=== PATIENT | female | born 1990 | race Caucasian/White ===

== ENCOUNTER 2018-07-30 10:09 | Outpatient (CLI) | payer OTHER, MEDICAID ==
[2018-07-30] MEDS ORDERED: LEVO200T5 PO (11:13)
== END 2018-07-30 23:59 | disposition home or self-care (01) ==
LOC: STAR 10:09
PROVIDERS: ATTEND Obstetrics & Gynecology
DX: Z02.9 Encounter for administrative examinations, unspecified (principal)

== ENCOUNTER 2018-08-08 13:55 | Day surgery (SDC) | payer OTHER, MEDICAID ==
[~2018-08-08] VITALS: Ht 167.6 cm; Wt 165.9 kg
[~2018-08-08 13:55] MED LIST: LEVO200T5 PO
[2018-08-08] MEDS ORDERED: LACTATED RINGERS 1,000 ML IV SCH (14:20)
[2018-08-08 14:26] VITALS: BP 142/89
[2018-08-08] MEDS ORDERED: BUPIVACAINE/PF 0.25% ONE (15:15)
[2018-08-08] MEDS ORDERED: EPINEPHRINE 1 MG/ML, 1ML ONE (15:15)
[2018-08-08] MEDS ORDERED: FENTANYL PF 250 MCG/5ML ONE (16:00)
[2018-08-08] MEDS ORDERED: MIDAZOLAM 1 MG/ML, 2ML ONE (16:00)
[2018-08-08] MEDS ORDERED: PROPOFOL 10 MG/ML, 20ML ONE (16:51)
[2018-08-08] MEDS ORDERED: MEPERIDINE/PF 50 MG/ML ONE (16:51)
[2018-08-08] MEDS ORDERED: SUCCINYLCHOLINE 20 MG/ML, 10ML ONE (16:51)
[2018-08-08] MEDS ORDERED: ROCURONIUM 10 MG/ML,10ML ONE (16:51)
[2018-08-08] MEDS ORDERED: CEFAZOLIN 1,000 MG ONE (16:51)
[2018-08-08] MEDS ORDERED: KETOROLAC 30 MG/1 ML ONE (16:51)
[2018-08-08] MEDS ORDERED: ONDANSETRON 2MG/ML, 2ML ONE (16:51)
[2018-08-08] MEDS ORDERED: DEXAMETHASONE 4 MG/ML, 1ML ONE (16:51)
[2018-08-08] MEDS ORDERED: OXYcodone 5 MG/5 ML ORAL.SOL UDC PO PRN ×2 (17:30→18:00)
[2018-08-08] MEDS ORDERED: ALBUTEROL SULFATE 2.5 MG/3 ML NPPB PRN (17:30)
[2018-08-08] MEDS ORDERED: hydrALAzine 20 MG/ML, 1ML IV PRN (17:30)
[2018-08-08] MEDS ORDERED: PROMETHAZINE 25 MG/ML, 1ML IV PRN (17:30)
[2018-08-08] MEDS ORDERED: HYDROmorphone 2 MG/ML, 1ML IVPush PRN (17:30)
[2018-08-08] MEDS ORDERED: KETOROLAC 30 MG/1 ML IV PRN (17:30)
[2018-08-08] MEDS ORDERED: MEPERIDINE/PF 25MG/0.5ML IVPush PRN (17:30)
[2018-08-08] MEDS ORDERED: LABETALOL 5MG/ML, 20ML IV PRN (17:30)
[2018-08-08] MEDS ORDERED: DIAZEPAM 5 MG/ML, 2ML IVPush PRN (17:30)
[2018-08-08] MEDS ORDERED: ACETAMINOPHEN 325 MG TABLET PO PRN (17:30)
[2018-08-08] MEDS ORDERED: SUGAMMADEX 200 MG/2 ML IVPush ONE (17:43)
[2018-08-08] MEDS ORDERED: ONDANSETRON 2MG/ML, 2ML IVPush PRN (18:00)
[2018-08-08] MEDS ORDERED: FENTANYL PF 100 MCG/2ML ONE (18:05)
[2018-08-08] MEDS ORDERED: OXYcodone 5 MG/5 ML ORAL.SOL UDC ONE (18:05)
[2018-08-08] MEDS: FENTANYL PF 100 MCG/2ML IV PRN ×2 (18:08→18:20)
[2018-08-08] MEDS ORDERED: IBUPROFEN 600 MG TABLET PO SCH (21:00)
== END 2018-08-08 20:35 | disposition home or self-care (01) ==
LOC: OR 13:55 → 4NOR 19:07 → OR 20:35
PROVIDERS: ATTEND Obstetrics & Gynecology
DX: Z30.2 Encounter for sterilization (principal); E03.9 Hypothyroidism, unspecified; E66.01 Morbid (severe) obesity due to excess calories; Z68.43 Body mass index [BMI] 50.0-59.9, adult
CPT/HCPCS: 58670; 81025; 88302; J0171; J0330; J0690; J1100; J1885; J2175; J2250; J2405; J2704; J3010; J3490; J7120; G0378